=== PATIENT | male | born 1965 | race African-American/Black ===

== ENCOUNTER 2017-04-30 13:04 | Emergency (ER) | payer MEDICAID ==
[~2017-04-30] VITALS: Ht 165.1 cm; Wt 94.6 kg
[2017-04-30] MEDS ORDERED: METHYLPREDNISOLONE SOD SUCC 125 MG/2 ML VIAL IM STA (14:52)
[2017-04-30] MEDS ORDERED: METHYLPREDNISOLONE SOD SUCC 125 MG/2 ML VIAL IV STA (15:04)
[2017-04-30] MEDS ORDERED: IPRATROPIUM/ALBUTEROL 0.5-3(2.5)MG/3ML NEB HHN ONE (15:15)
[2017-04-30 16:19] LABS: BASOPHILS % 0.3 % (0.0-2.0); EOSINOPHILS % 0.5 % (0.0-5.0); HEMATOCRIT. 30.8 % (42.0-52.0); HEMOGLOBIN. 9.2 g/dL (14.0-18.0); MEAN CORPUSCULAR HEMOGLOBIN 21.2 pg (28.0-32.0); MEAN CORPUSCULAR VOLUME 70.7 fL (80.0-94.0); MEAN PLATELET VOLUME 7.2 fl (7.4-10.4); MONOCYTES % 10.3 % (2.0-8.0); NEUTROPHILS % 71.9 % (40.0-76.0); PLATELET 535 x1000/uL (130-400); RED BLOOD CELL COUNT 4.35 mill/uL (4.7-6.1); RED CELL DISTRIBUTION WIDTH 19.9 % (11.6-14.6)
[2017-04-30 16:24] LABS: CHLORIDE 101 mEq/L (98-107)
[2017-04-30 16:32] LABS: CARBON DIOXIDE 29 mEq/L (21-32)
[2017-04-30] MEDS ORDERED: SODIUM CHLORIDE 0.9% 1000ML BAG (SEPSIS BOLUS) IV ONE (16:45)
[2017-04-30] MEDS ORDERED: LEVOFLOXACIN 750MG PREMIX 150 ML IV ONE (16:45)
[2017-04-30 17:30] LABS: INR 1.2; PROTHROMBIN TIME 12.9 sec (9.4-11.6)
[2017-04-30 18:14] LABS: CLARITY URINE CLEAR (CLEAR); COLOR URINE DARK YELLOW (YELLOW); KETONES URINE NEGATIVE (NEGATIVE); LEUKOCYTE ESTERASE URINE TRACE (NEGATIVE); NITRITE URINE NEGATIVE (NEGATIVE); OCCULT BLOOD URINE NEGATIVE (NEGATIVE); PROTEIN URINE NEGATIVE (NEGATIVE); SPECIFIC GRAVITY URINE 1.023 (1.005-1.030)
[2017-04-30] MEDS ORDERED: GUAIFENESIN 200MG/10ML SUGAR FREE UDC PO PRN (19:00)
[2017-04-30] MEDS ORDERED: ACETAMINOPHEN 325MG TABLET PO PRN (19:00)
[2017-04-30] MEDS ORDERED: AZITHROMYCIN 500 MG in DEXT 5% WATER 250 ML IV SCH (19:00)
[2017-04-30] MEDS ORDERED: MAGNESIUM/ALUMINUM HYDROXIDE/SIMETHICONE 30ML UDC PO PRN (19:00)
[2017-04-30] MEDS ORDERED: CEFTRIAXONE 1 G PREMIX 50 ML IV SCH (19:00)
[2017-04-30] MEDS ORDERED: CLONIDINE 0.1MG TABLET PO PRN (19:00)
[2017-04-30] MEDS ORDERED: DOCUSATE SODIUM 100MG CAPSULE PO PRN (19:00)
[2017-04-30] MEDS ORDERED: ENOXAPARIN 40MG/0.4ML SYR SUBCUT SCH (19:00)
[2017-04-30] MEDS ORDERED: ONDANSETRON HCL 4MG/2ML VIAL IV PRN (19:00)
[2017-04-30] MEDS ORDERED: IPRATROPIUM/ALBUTEROL 0.5-3(2.5)MG/3ML NEB INH PRN (19:00)
[2017-04-30 19:26] VITALS: BP 115/53
[2017-04-30 21:06] LABS: *AMPHETAMINES SCREEN URINE NEGATIVE (NEGATIVE); *BARBITURATES SCREEN URINE NEGATIVE (NEGATIVE); *BENZODIAZEPINES SCREEN URINE NEGATIVE (NEGATIVE); *COCAINE SCREEN URINE NEGATIVE (NEGATIVE); CANNABINOID URINE SCREEN NEGATIVE (NEGATIVE); METHADONE URINE SCREEN NEGATIVE (NEGATIVE); OPIATES URINE SCREEN NEGATIVE (NEGATIVE); PHENCYCLIDINE URINE SCREEN NEGATIVE (NEGATIVE)
[2017-04-30] MEDS ORDERED: METHYLPREDNISOLONE SOD SUCC 125 MG/2 ML VIAL IV SCH (22:00)
[2017-04-30 23:44] LABS: CREATINE KINASE 51 IU/L (39-308); CREATINE KINASE MB FRACTION 0.6 ng/mL (0.5-3.6); TROPONIN I < 0.02 ng/mL (0.00-0.04)
[2017-05-01] MEDS ORDERED: MOME13HF PO (22:23)
[2017-05-01] MEDS ORDERED: ALBU6.7H INH (22:23)
[2017-05-01] MEDS ORDERED: ALBU18HF2 INH (22:23)
[2017-05-01] MEDS ORDERED: FERR325T23 PO (22:23)
[2017-05-01] MEDS ORDERED: DOCU-272 PO (22:23)
[2017-05-03] MEDS ORDERED: ATOR20TA65 PO (12:18)
[2017-05-03] MEDS ORDERED: FERR325T6 PO (12:18)
[2017-05-03] MEDS ORDERED: DOCU-150 PO (12:20)
[2017-05-03] MEDS ORDERED: MELO-106 PO (12:21)
[2017-05-03] MEDS ORDERED: OLAN10TA3 PO (12:22)
== END 2017-04-30 21:00 | disposition left against medical advice (07) ==
LOC: ER 13:10 → CANRESERV 20:18 → ENRESERV 20:18 → ER 21:00 → CANBEDREQ 05-01 16:42
DX: J18.9 Pneumonia, unspecified organism (principal); J45.901 Unspecified asthma with (acute) exacerbation; J90 Pleural effusion, not elsewhere classified; D50.9 Iron deficiency anemia, unspecified; Z79.899 Other long term (current) drug therapy; Z79.51 Long term (current) use of inhaled steroids
CPT/HCPCS: 36415; 71010; 80053; 80305; 81001; 82550; 82553; 83540; 83550; 83605; 83735; 84484; 85025; 85044; 85379; 85610; 87040; 87086; 93005; 94640; 96365; 96366; 96375; 99285; J1956; J2930; J7030; Z7610; J7620

== ENCOUNTER 2017-06-13 22:32 | Inpatient (IN) | payer MEDICAID ==
[~2017-06-13] VITALS: Ht 185.4 cm; Wt 85.1 kg
[~2017-06-13 22:32] MED LIST: ALBU18HF2 INH; ALBU6.7H INH; ATOR20TA65 PO; DOCU-150 PO; DOCU-272 PO; FERR325T23 PO; FERR325T6 PO; MELO-106 PO; MOME13HF PO; OLAN10TA3 PO
[2017-06-13] MEDS ORDERED: ONDANSETRON HCL 4MG/2ML VIAL IV STA (23:36)
[2017-06-13] MEDS ORDERED: MORPHINE SULFATE 4 MG/ML CPJ (NOT FOR IM USE) IV STA (23:36)
[2017-06-14 00:11] LABS: BASOPHILS % 0.6 % (0.0-2.0); EOSINOPHILS % 0.2 % (0.0-5.0); HEMATOCRIT. 25.1 % (42.0-52.0); HEMOGLOBIN. 7.6 g/dL (14.0-18.0); MEAN CORPUSCULAR HEMOGLOBIN 21.6 pg (28.0-32.0); MEAN CORPUSCULAR VOLUME 71.7 fL (80.0-94.0); MEAN PLATELET VOLUME 7.5 fl (7.4-10.4); MONOCYTES % 14.3 % (2.0-8.0); NEUTROPHILS % 74.9 % (40.0-76.0); PLATELET 554 x1000/uL (130-400); RED CELL DISTRIBUTION WIDTH 23.3 % (11.6-14.6)
[2017-06-14 00:19] LABS: PLATELET ESTIMATE SLIGHTLY INCREASED
[2017-06-14 00:26] LABS: CHLORIDE 97 mEq/L (98-107); TROPONIN I < 0.02 ng/mL (0.00-0.04)
[2017-06-14 00:33] LABS: BG BASE EXCESS 6.4 mmol/L (-2.0-2.0); BG CARBOXYHEMOGLOBIN 0.9 % (0.5-1.5); BG DEOXYHEMOGLOBIN 3.3 % (0.0-5.0); BG FRACTION INSPIRED OXYGEN 32; BG HCO3 ACT 29.8 mmol/L (22.0-26.0); BG METHEMOGLOBIN 0.4 % (0.0-1.5); BG OXYGEN SATURATION 96.7 % (92.0-98.5); BG OXYHEMOGLOBIN 95.4 % (94.0-97.0); BG PCO2 37.9 mmHg (35.0-45.0); BG PH 7.514 (7.350-7.450); BG PO2 83.8 mmHg (75.0-100.0); BG SAMPLE SITE RIGHT RADIAL; BG TOTAL HEMOGLOBIN 8.2 g/dL (12.0-18.0); BG VENT MODE NASAL CANNULA
[2017-06-14 00:42] LABS: INR 1.5; PROTHROMBIN TIME 15.4 sec (9.4-11.6)
[2017-06-14] MEDS ORDERED: SODIUM CHLORIDE 0.9% 1,000 ML IV ONE (00:44)
[2017-06-14] MEDS ORDERED: MORPHINE SULFATE 4 MG/ML CPJ (NOT FOR IM USE) IV ONE (00:45)
[2017-06-14] MEDS ORDERED: SODIUM CHLORIDE 0.9% 1,000 ML IV SCH (01:55)
[2017-06-14] MEDS ORDERED: IOHEXOL-350 100 ML BOTTLE ONE (05:15)
[2017-06-14 06:45] VITALS: BP 108/64
[2017-06-14 08:00] VITALS: BP 113/63
[2017-06-14 10:30] VITALS: BP 113/63
[2017-06-14 12:00] VITALS: BP 128/72
[2017-06-14] MEDS ORDERED: HYDROCODONE/ACETAMINOPHEN 5/325MG TABLET PO PRN (12:30)
[2017-06-14] MEDS ORDERED: IPRATROPIUM/ALBUTEROL 0.5-3(2.5)MG/3ML NEB HHN PRN (12:30)
[2017-06-14] MEDS ORDERED: FUROSEMIDE 40MG/4ML VIAL IVP NR (13:30)
[2017-06-14] MEDS ORDERED: MORPHINE SULFATE 2 MG/ML CPJ (NOT FOR IM USE) IV PRN (14:45)
[2017-06-14] MEDS: LEVOFLOXACIN 500MG PREMIX 100 ML IV SCH (15:48)
[2017-06-14 16:00] VITALS: BP 131/42
[2017-06-14] MEDS: MEGESTROL ACETATE 20MG TABLET PO SCH (17:54)
[2017-06-14] MEDS: IPRATROPIUM/ALBUTEROL 0.5-3(2.5)MG/3ML NEB HHN SCH (19:56)
[2017-06-14 20:00] VITALS: BP 111/57
[2017-06-14] MEDS ORDERED: GUAIFENESIN 200MG/10ML SUGAR FREE UDC PO PRN (20:15)
[2017-06-14] MEDS: MORPHINE SULFATE 2 MG/ML CPJ (NOT FOR IM USE) IV PRN (21:47)
[2017-06-14] MEDS ORDERED: GUAIFENESIN/CODEINE 200-20MG/10ML UDC PO PRN (23:00)
[2017-06-15] VITALS (19 sets, daily range): BP systolic 104–161; BP diastolic 47–91
[2017-06-15] MEDS: IPRATROPIUM/ALBUTEROL 0.5-3(2.5)MG/3ML NEB HHN SCH ×2 (02:01→08:56)
[2017-06-15] MEDS: MORPHINE SULFATE 2 MG/ML CPJ (NOT FOR IM USE) IV PRN ×5 (02:21→18:50)
[2017-06-15] MEDS: MEGESTROL ACETATE 20MG TABLET PO SCH ×4 (06:00→13:41)
[2017-06-15 06:12] LABS: HEMATOCRIT. 23.2 % (42.0-52.0); MEAN CORPUSCULAR HEMOGLOBIN 21.7 pg (28.0-32.0); MEAN CORPUSCULAR VOLUME 72.2 fL (80.0-94.0); MEAN PLATELET VOLUME 7.8 fl (7.4-10.4); PLATELET 493 x1000/uL (130-400); RED BLOOD CELL COUNT 3.21 mill/uL (4.7-6.1); RED CELL DISTRIBUTION WIDTH 22.8 % (11.6-14.6)
[2017-06-15 08:02] LABS: CHLORIDE 97 mEq/L (98-107); CREATINE KINASE 21 IU/L (39-308); CREATINE KINASE MB FRACTION < 0.5 ng/mL (0.5-3.6); TROPONIN I < 0.02 ng/mL (0.00-0.04)
[2017-06-15 09:00] LABS: BG BASE EXCESS 8.1 mmol/L (-2.0-2.0); BG CARBOXYHEMOGLOBIN 0.4 % (0.5-1.5); BG DEOXYHEMOGLOBIN 3.7 % (0.0-5.0); BG FRACTION INSPIRED OXYGEN 28; BG HCO3 ACT 32.4 mmol/L (22.0-26.0); BG METHEMOGLOBIN 0.4 % (0.0-1.5); BG OXYGEN SATURATION 96.3 % (92.0-98.5); BG OXYHEMOGLOBIN 95.5 % (94.0-97.0); BG PCO2 44.8 mmHg (35.0-45.0); BG PH 7.477 (7.350-7.450); BG PO2 82.9 mmHg (75.0-100.0); BG SAMPLE SITE RIGHT RADIAL; BG TOTAL HEMOGLOBIN 7.6 g/dL (12.0-18.0); BG VENT MODE NASAL CANNULA
[2017-06-15] MEDS: FUROSEMIDE 40MG/4ML VIAL IVP SCH (09:11)
[2017-06-15 09:38] LABS: PLATELET ESTIMATE SLIGHTLY INCREASED
[2017-06-15] MEDS ORDERED: SKIN ADHESIVE 0.7 GM EA TOP ONE (13:08)
[2017-06-15] MEDS ORDERED: BUPIVACAINE HCL/EPINEPHRINE 0.5%/0.0005 30ML ONE (13:08)
[2017-06-15] MEDS ORDERED: NORMAL SALINE 0.9% 10 ML SYR ONE (13:08)
[2017-06-15] MEDS ORDERED: BACITRACIN 50,000 UNITS/VIAL ONE (13:08)
[2017-06-15] MEDS ORDERED: HETASTARCH IV ONE (13:09)
[2017-06-15] MEDS ORDERED: NORMAL SALINE IV ONE (13:09)
[2017-06-15 14:58] LABS: CLARITY URINE CLEAR (CLEAR); COLOR URINE YELLOW (YELLOW); KETONES URINE NEGATIVE (NEGATIVE); LEUKOCYTE ESTERASE URINE NEGATIVE (NEGATIVE); NITRITE URINE NEGATIVE (NEGATIVE); OCCULT BLOOD URINE NEGATIVE (NEGATIVE); PH URINE 7.5 (4.5-8.0); PROTEIN URINE NEGATIVE (NEGATIVE); SPECIFIC GRAVITY URINE 1.008 (1.005-1.030)
[2017-06-15 15:31] LABS: HAPTOGLOBIN 532 mg/dL (30-200); TOTAL IRON BINDING CAPACITY 133 ug/dL (250-450)
[2017-06-15 16:06] LABS: FOLIC ACID (FOLATE) SERUM 6.6 ng/mL (>5.38)
[2017-06-15 18:32] LABS: HEMATOCRIT 25.9 % (42.0-52.0); HEMOGLOBIN 8.1 g/dL (14.0-18.0)
[2017-06-15] MEDS: LEVOFLOXACIN 500MG PREMIX 100 ML IV SCH (18:34)
[2017-06-15] MEDS ORDERED: PROPOFOL 200MG/20ML VIAL IV ONE (19:02)
[2017-06-15] MEDS ORDERED: SUCCINYLCHOLINE CHLORIDE 200MG/10ML VIAL IV ONE (19:07)
[2017-06-15] MEDS ORDERED: VECURONIUM BROMIDE 10 MG/VIAL IV ONE (19:07)
[2017-06-15] MEDS ORDERED: PHENYLEPHRINE HCL 10 MG/ML 1ML (IV VIAL) IV ONE (19:07)
[2017-06-15] MEDS ORDERED: DOXYCYCLINE HYCLATE 100 MG/VIAL IV NR (20:03)
[2017-06-15] MEDS ORDERED: ROCURONIUM BROMIDE 10MG/ML VIAL 5ML IV ONE ×2 (20:12→20:47)
[2017-06-15] MEDS ORDERED: ONDANSETRON HCL 4MG/2ML VIAL ONE (20:49)
[2017-06-15] MEDS: PROPOFOL 10MG/ML 100ML 100 ML IV PRN (23:45)
[2017-06-15 23:58] LABS: HEMATOCRIT 27.2 % (42.0-52.0); HEMOGLOBIN 8.4 g/dL (14.0-18.0); MEAN CORPUSCULAR HEMOGLOBIN 22.7 pg (28.0-32.0); MEAN CORPUSCULAR VOLUME 73.9 fL (80.0-94.0); PLATELET 474 x1000/uL (130-400); RED BLOOD CELL COUNT 3.69 mill/uL (4.7-6.1); RED CELL DISTRIBUTION WIDTH 23.6 % (11.6-14.6)
[2017-06-16] VITALS (74 sets, daily range): BP systolic 92–138; BP diastolic 57–90
[2017-06-16 00:06] LABS: INR 1.5; PARTIAL THROMBOPLASTIN TIME 30.3 sec (23.4-31.0); PROTHROMBIN TIME 16.2 sec (9.4-11.6)
[2017-06-16 00:11] LABS: CHLORIDE 100 mEq/L (98-107)
[2017-06-16 00:17] LABS: PHOSPHORUS 4.7 mg/dL (2.5-4.9)
[2017-06-16] MEDS ORDERED: MORPHINE SULFATE 2 MG/ML CPJ (NOT FOR IM USE) IV PRN (00:30)
[2017-06-16 01:07] LABS: BG BASE EXCESS 4.7 mmol/L (-2.0-2.0); BG CARBOXYHEMOGLOBIN 0.7 % (0.5-1.5); BG DEOXYHEMOGLOBIN 1.6 % (0.0-5.0); BG FRACTION INSPIRED OXYGEN 50; BG HCO3 ACT 29.3 mmol/L (22.0-26.0); BG METHEMOGLOBIN 0.3 % (0.0-1.5); BG OXYGEN SATURATION 98.4 % (92.0-98.5); BG OXYHEMOGLOBIN 97.4 % (94.0-97.0); BG PCO2 43.6 mmHg (35.0-45.0); BG PH 7.445 (7.350-7.450); BG SAMPLE SITE RIGHT RADIAL; BG TIDAL VOLUME(mL) 650 mL; BG TOTAL HEMOGLOBIN 8.8 g/dL (12.0-18.0); BG VENT MODE VENT - A/C; BG VENT RATE 12 set
[2017-06-16] MEDS: PROPOFOL 10MG/ML 100ML 100 ML IV PRN ×8 (01:21→23:38)
[2017-06-16] MEDS: IPRATROPIUM/ALBUTEROL 0.5-3(2.5)MG/3ML NEB HHN SCH ×3 (02:13→19:45)
[2017-06-16] MEDS: MEGESTROL ACETATE 20MG TABLET PO SCH ×6 (06:00→23:49)
[2017-06-16] MEDS: SODIUM CHLORIDE 0.9% 1,000 ML IV SCH ×3 (06:49→21:33)
[2017-06-16] MEDS ORDERED: NOREPINEPHRINE 4 MG in DEXT 5% WATER 246 ML IV PRN (07:30)
[2017-06-16 08:15] LABS: HEMATOCRIT. 25.6 % (42.0-52.0); HEMOGLOBIN. 7.8 g/dL (14.0-18.0); MEAN CORPUSCULAR HEMOGLOBIN 22.9 pg (28.0-32.0); MEAN CORPUSCULAR VOLUME 74.8 fL (80.0-94.0); MEAN PLATELET VOLUME 8.3 fl (7.4-10.4); PLATELET 421 x1000/uL (130-400); RED BLOOD CELL COUNT 3.42 mill/uL (4.7-6.1); RED CELL DISTRIBUTION WIDTH 23.4 % (11.6-14.6)
[2017-06-16 08:35] LABS: CHLORIDE 100 mEq/L (98-107)
[2017-06-16] MEDS: FUROSEMIDE 40MG/4ML VIAL IVP SCH ×2 (09:18→11:00)
[2017-06-16 09:39] LABS: BG BASE EXCESS 4.6 mmol/L (-2.0-2.0); BG CARBOXYHEMOGLOBIN 0.1 % (0.5-1.5); BG FRACTION INSPIRED OXYGEN 50; BG HCO3 ACT 28.8 mmol/L (22.0-26.0); BG METHEMOGLOBIN 0.4 % (0.0-1.5); BG OXYHEMOGLOBIN 97.5 % (94.0-97.0); BG PCO2 41.1 mmHg (35.0-45.0); BG PH 7.463 (7.350-7.450); BG PO2 108.4 mmHg (75.0-100.0); BG SAMPLE SITE RIGHT RADIAL; BG TIDAL VOLUME(mL) 650 mL; BG TOTAL HEMOGLOBIN 9.3 g/dL (12.0-18.0); BG VENT MODE VENT - A/C; BG VENT RATE 12 set
[2017-06-16] MEDS ORDERED: FUROSEMIDE 40MG/4ML VIAL IVP NR (09:45)
[2017-06-16] MEDS: ACETAMINOPHEN 650MG SUPP PR NR ×2 (11:00→23:36)
[2017-06-16 11:05] LABS: PLATELET ESTIMATE INCREASED
[2017-06-16] MEDS: PANTOPRAZOLE SODIUM 40 MG/VIAL IV SCH (12:38)
[2017-06-16] MEDS ORDERED: MAGNESIUM 2 G PREMIX 50 ML IV NR (13:00)
[2017-06-16] MEDS: LEVOFLOXACIN 500MG PREMIX 100 ML IV SCH (15:00)
[2017-06-17] VITALS (52 sets, daily range): BP systolic 102–137; BP diastolic 66–91
[2017-06-17] MEDS: IPRATROPIUM/ALBUTEROL 0.5-3(2.5)MG/3ML NEB HHN SCH ×4 (01:45→20:28)
[2017-06-17] MEDS: PROPOFOL 10MG/ML 100ML 100 ML IV PRN ×5 (04:25→23:01)
[2017-06-17 04:42] LABS: HEMATOCRIT. 29.9 % (42.0-52.0); HEMOGLOBIN. 9.7 g/dL (14.0-18.0); MEAN CORPUSCULAR HEMOGLOBIN 24.1 pg (28.0-32.0); MEAN CORPUSCULAR VOLUME 74.5 fL (80.0-94.0); MEAN PLATELET VOLUME 7.5 fl (7.4-10.4); PLATELET 433 x1000/uL (130-400); RED BLOOD CELL COUNT 4.01 mill/uL (4.7-6.1); RED CELL DISTRIBUTION WIDTH 23.2 % (11.6-14.6)
[2017-06-17 05:00] LABS: CHLORIDE 100 mEq/L (98-107)
[2017-06-17] MEDS: MORPHINE SULFATE 2 MG/ML CPJ (NOT FOR IM USE) IV PRN ×2 (05:05→20:44)
[2017-06-17] MEDS: MEGESTROL ACETATE 20MG TABLET PO SCH ×3 (05:06→18:22)
[2017-06-17 08:24] LABS: BG BASE EXCESS 4.6 mmol/L (-2.0-2.0); BG CARBOXYHEMOGLOBIN 0.8 % (0.5-1.5); BG DEOXYHEMOGLOBIN 1.1 % (0.0-5.0); BG FRACTION INSPIRED OXYGEN 50; BG HCO3 ACT 28.7 mmol/L (22.0-26.0); BG METHEMOGLOBIN 0.4 % (0.0-1.5); BG OXYGEN SATURATION 98.9 % (92.0-98.5); BG OXYHEMOGLOBIN 97.7 % (94.0-97.0); BG PCO2 40.7 mmHg (35.0-45.0); BG PH 7.466 (7.350-7.450); BG PO2 135.3 mmHg (75.0-100.0); BG SAMPLE SITE RIGHT RADIAL; BG TIDAL VOLUME(mL) 650 mL; BG TOTAL HEMOGLOBIN 10.8 g/dL (12.0-18.0); BG VENT MODE VENT - A/C; BG VENT RATE 10 set
[2017-06-17 09:07] LABS: PHOSPHORUS 3.9 mg/dL (2.5-4.9)
[2017-06-17] MEDS: PANTOPRAZOLE SODIUM 40 MG/VIAL IV SCH (09:30)
[2017-06-17] MEDS: FUROSEMIDE 40MG/4ML VIAL IVP SCH (09:30)
[2017-06-17] MEDS: SODIUM CHLORIDE 0.9% 1,000 ML IV SCH ×3 (09:31→20:47)
[2017-06-17 10:43] LABS: BG CARBOXYHEMOGLOBIN 0.6 % (0.5-1.5); BG DEOXYHEMOGLOBIN 1.5 % (0.0-5.0); BG FRACTION INSPIRED OXYGEN 50; BG HCO3 ACT 32.3 mmol/L (22.0-26.0); BG METHEMOGLOBIN 0.3 % (0.0-1.5); BG OXYGEN SATURATION 98.5 % (92.0-98.5); BG OXYHEMOGLOBIN 97.6 % (94.0-97.0); BG PCO2 43.5 mmHg (35.0-45.0); BG PH 7.488 (7.350-7.450); BG PO2 109.7 mmHg (75.0-100.0); BG PRESSURE SUPPORT 12; BG SAMPLE SITE RIGHT RADIAL; BG TIDAL VOLUME(mL) 650 mL; BG TOTAL HEMOGLOBIN 11.3 g/dL (12.0-18.0); BG VENT MODE VENT - SIMV; BG VENT RATE 8 set
[2017-06-17 11:15] LABS: PLATELET ESTIMATE INCREASED
[2017-06-17 13:11] LABS: BG BASE EXCESS 5.4 mmol/L (-2.0-2.0); BG CARBOXYHEMOGLOBIN 0.4 % (0.5-1.5); BG DEOXYHEMOGLOBIN 2.4 % (0.0-5.0); BG FRACTION INSPIRED OXYGEN 40; BG HCO3 ACT 29.3 mmol/L (22.0-26.0); BG METHEMOGLOBIN 0.5 % (0.0-1.5); BG OXYGEN SATURATION 97.6 % (92.0-98.5); BG OXYHEMOGLOBIN 96.7 % (94.0-97.0); BG PCO2 40.5 mmHg (35.0-45.0); BG PH 7.478 (7.350-7.450); BG PO2 97.6 mmHg (75.0-100.0); BG PRESSURE SUPPORT 8; BG SAMPLE SITE RIGHT RADIAL; BG TIDAL VOLUME(mL) 650 mL; BG TOTAL HEMOGLOBIN 11.2 g/dL (12.0-18.0); BG VENT MODE VENT - SIMV; BG VENT RATE 4 set
[2017-06-17] MEDS: LEVOFLOXACIN 500MG PREMIX 100 ML IV SCH (15:29)
[2017-06-18] VITALS (47 sets, daily range): BP systolic 110–154; BP diastolic 57–109
[2017-06-18] MEDS: MEGESTROL ACETATE 20MG TABLET PO SCH ×2 (00:59→06:28)
[2017-06-18] MEDS: IPRATROPIUM/ALBUTEROL 0.5-3(2.5)MG/3ML NEB HHN SCH ×2 (02:12→07:58)
[2017-06-18] MEDS: PROPOFOL 10MG/ML 100ML 100 ML IV PRN (02:52)
[2017-06-18 04:57] LABS: HEMATOCRIT. 32.5 % (42.0-52.0); HEMOGLOBIN. 10.2 g/dL (14.0-18.0); MEAN CORPUSCULAR VOLUME 76.4 fL (80.0-94.0); PLATELET 477 x1000/uL (130-400); RED BLOOD CELL COUNT 4.26 mill/uL (4.7-6.1); RED CELL DISTRIBUTION WIDTH 23.1 % (11.6-14.6)
[2017-06-18] MEDS ORDERED: LIDOCAINE HCL/PF 1% 2ML VIAL ONE (05:00)
[2017-06-18 05:10] LABS: CHLORIDE 101 mEq/L (98-107)
[2017-06-18] MEDS ORDERED: PROPOFOL 10MG/ML 100ML 100 ML IV PRN ×2 (06:45→09:30)
[2017-06-18] MEDS: SODIUM CHLORIDE 0.9% 1,000 ML IV SCH (07:14)
[2017-06-18 08:21] LABS: BG CARBOXYHEMOGLOBIN 0.4 % (0.5-1.5); BG DEOXYHEMOGLOBIN 2.6 % (0.0-5.0); BG FRACTION INSPIRED OXYGEN 40; BG HCO3 ACT 29.3 mmol/L (22.0-26.0); BG METHEMOGLOBIN 0.4 % (0.0-1.5); BG OXYGEN SATURATION 97.4 % (92.0-98.5); BG OXYHEMOGLOBIN 96.6 % (94.0-97.0); BG PCO2 41.9 mmHg (35.0-45.0); BG PH 7.462 (7.350-7.450); BG PO2 96.4 mmHg (75.0-100.0); BG PRESSURE SUPPORT 16; BG SAMPLE SITE RIGHT RADIAL; BG TIDAL VOLUME(mL) 650 mL; BG TOTAL HEMOGLOBIN 10.6 g/dL (12.0-18.0); BG VENT MODE VENT - SIMV; BG VENT RATE 8 set
[2017-06-18] MEDS: FUROSEMIDE 40MG/4ML VIAL IVP SCH (08:23)
[2017-06-18] MEDS: PANTOPRAZOLE SODIUM 40 MG/VIAL IV SCH (08:23)
[2017-06-18] MEDS: MORPHINE SULFATE 2 MG/ML CPJ (NOT FOR IM USE) IV PRN ×4 (08:25→20:25)
[2017-06-18] MEDS ORDERED: MIDAZOLAM HCL 100 MG in DEXT 5% WATER 80 ML IV PRN (09:00)
[2017-06-18] MEDS ORDERED: FENTANYL CITRATE/PF 500 MCG in SODIUM CHLORIDE 0.9% 40 ML IV PRN (09:30)
[2017-06-18 11:09] LABS: BG BASE EXCESS 5.3 mmol/L (-2.0-2.0); BG CARBOXYHEMOGLOBIN 0.5 % (0.5-1.5); BG FRACTION INSPIRED OXYGEN 40; BG HCO3 ACT 29.5 mmol/L (22.0-26.0); BG METHEMOGLOBIN 0.3 % (0.0-1.5); BG OXYHEMOGLOBIN 95.2 % (94.0-97.0); BG PCO2 41.7 mmHg (35.0-45.0); BG PH 7.468 (7.350-7.450); BG PO2 82.6 mmHg (75.0-100.0); BG PRESSURE SUPPORT 8; BG SAMPLE SITE RIGHT RADIAL; BG TOTAL HEMOGLOBIN 11.4 g/dL (12.0-18.0); BG VENT MODE VENT - CPAP
[2017-06-18 11:20] LABS: PLATELET ESTIMATE INCREASED
[2017-06-18] MEDS ORDERED: MORPHINE SULFATE 2 MG/ML CPJ (NOT FOR IM USE) IV PRN (12:15)
[2017-06-18] MEDS: IPRATROPIUM BROMIDE (0.02%) 0.5MG/2.5ML NEB HHN SCH ×2 (14:06→20:42)
[2017-06-18] MEDS: LEVOFLOXACIN 500MG PREMIX 100 ML IV SCH (15:39)
[2017-06-18] MEDS ORDERED: ZOLPIDEM TARTRATE 5MG TABLET PO PRN (22:30)
[2017-06-19] VITALS (31 sets, daily range): BP systolic 104–150; BP diastolic 52–101
[2017-06-19] MEDS: IPRATROPIUM BROMIDE (0.02%) 0.5MG/2.5ML NEB HHN SCH ×3 (01:30→20:38)
[2017-06-19] MEDS: MORPHINE SULFATE 2 MG/ML CPJ (NOT FOR IM USE) IV PRN ×7 (02:52→23:35)
[2017-06-19 07:19] LABS: BG BASE EXCESS 3.6 mmol/L (-2.0-2.0); BG DEOXYHEMOGLOBIN 4.7 % (0.0-5.0); BG HCO3 ACT 28.1 mmol/L (22.0-26.0); BG METHEMOGLOBIN 0.2 % (0.0-1.5); BG OXYGEN SATURATION 95.2 % (92.0-98.5); BG OXYHEMOGLOBIN 94.1 % (94.0-97.0); BG PH 7.443 (7.350-7.450); BG PO2 75.8 mmHg (75.0-100.0); BG SAMPLE SITE RIGHT RADIAL; BG TOTAL HEMOGLOBIN 11.7 g/dL (12.0-18.0); BG VENT MODE NASAL CANNULA
[2017-06-19] MEDS: FUROSEMIDE 40MG/4ML VIAL IVP SCH (08:09)
[2017-06-19] MEDS: PANTOPRAZOLE SODIUM 40 MG/VIAL IV SCH (08:09)
[2017-06-19 09:35] LABS: HEMATOCRIT. 35.1 % (42.0-52.0); HEMOGLOBIN. 10.7 g/dL (14.0-18.0); MEAN CORPUSCULAR HEMOGLOBIN 23.6 pg (28.0-32.0); MEAN CORPUSCULAR VOLUME 77.3 fL (80.0-94.0); MEAN PLATELET VOLUME 8.7 fl (7.4-10.4); PLATELET 498 x1000/uL (130-400); RED BLOOD CELL COUNT 4.54 mill/uL (4.7-6.1); RED CELL DISTRIBUTION WIDTH 24.3 % (11.6-14.6)
[2017-06-19 09:46] LABS: CHLORIDE 102 mEq/L (98-107)
[2017-06-19] MEDS ORDERED: CLONIDINE 0.1MG TABLET PO PRN (10:30)
[2017-06-19] MEDS ORDERED: CEFEPIME 2,000 MG in SODIUM CHLORIDE 0.9% 100 ML IV SCH (11:00)
[2017-06-19] MEDS ORDERED: POTASSIUM CHLORIDE 20MEQ TABLET SR PO NR (11:00)
[2017-06-19 11:20] LABS: PLATELET ESTIMATE INCREASED
[2017-06-19] MEDS: DILTIAZEM HCL 30MG TABLET PO SCH ×3 (11:36→23:33)
[2017-06-19] MEDS ORDERED: METRONIDAZOLE 500 MG PREMIX 100 ML IV SCH (12:00)
[2017-06-19] MEDS ORDERED: CEFEPIME 2,000 MG in SODIUM CHLORIDE 0.9% 50 ML IV SCH (20:19)
[2017-06-19] MEDS: METRONIDAZOLE 500 MG PREMIX 100 ML IV SCH (21:24)
[2017-06-19] MEDS: CEFEPIME 2,000 MG in SODIUM CHLORIDE 0.9% 50 ML IV SCH (23:09)
[2017-06-20] VITALS (15 sets, daily range): BP systolic 107–136; BP diastolic 63–90
[2017-06-20] MEDS: IPRATROPIUM BROMIDE (0.02%) 0.5MG/2.5ML NEB HHN SCH ×4 (02:44→20:49)
[2017-06-20] MEDS: MORPHINE SULFATE 2 MG/ML CPJ (NOT FOR IM USE) IV PRN ×5 (02:45→17:21)
[2017-06-20] MEDS: METRONIDAZOLE 500 MG PREMIX 100 ML IV SCH ×3 (05:13→22:11)
[2017-06-20] MEDS: DILTIAZEM HCL 30MG TABLET PO SCH ×2 (05:25→06:16)
[2017-06-20] MEDS: FUROSEMIDE 40MG/4ML VIAL IVP SCH (08:38)
[2017-06-20] MEDS: PANTOPRAZOLE SODIUM 40 MG/VIAL IV SCH (08:39)
[2017-06-20 08:55] LABS: BG BASE EXCESS 6.9 mmol/L (-2.0-2.0); BG DEOXYHEMOGLOBIN 4.4 % (0.0-5.0); BG FRACTION INSPIRED OXYGEN 32; BG HCO3 ACT 31.4 mmol/L (22.0-26.0); BG METHEMOGLOBIN 0.3 % (0.0-1.5); BG OXYGEN SATURATION 95.5 % (92.0-98.5); BG OXYHEMOGLOBIN 94.3 % (94.0-97.0); BG PCO2 44.2 mmHg (35.0-45.0); BG PH 7.469 (7.350-7.450); BG PO2 74.7 mmHg (75.0-100.0); BG SAMPLE SITE RIGHT RADIAL; BG TOTAL HEMOGLOBIN 12.2 g/dL (12.0-18.0); BG VENT MODE NASAL CANNULA
[2017-06-20] MEDS: CEFEPIME 2,000 MG in SODIUM CHLORIDE 0.9% 50 ML IV SCH ×2 (11:16→23:15)
[2017-06-20] MEDS ORDERED: POTASSIUM CHLORIDE 20MEQ TABLET SR PO ONE (11:30)
[2017-06-20] MEDS: DILTIAZEM HCL 60MG TABLET PO SCH ×2 (13:05→17:18)
[2017-06-20] MEDS: FAMOTIDINE 20MG/2ML VIAL IV SCH (20:08)
[2017-06-20] MEDS: MORPHINE SULFATE 4 MG/ML CPJ (NOT FOR IM USE) IV PRN ×2 (20:09→22:45)
[2017-06-20] MEDS ORDERED: MORPHINE SULFATE 4 MG/ML CPJ (NOT FOR IM USE) IV PRN (20:15)
[2017-06-21] VITALS (15 sets, daily range): BP systolic 113–167; BP diastolic 66–92
[2017-06-21] MEDS: DILTIAZEM HCL 60MG TABLET PO SCH ×4 (00:52→18:49)
[2017-06-21] MEDS: MORPHINE SULFATE 4 MG/ML CPJ (NOT FOR IM USE) IV PRN ×8 (02:12→23:20)
[2017-06-21] MEDS: IPRATROPIUM BROMIDE (0.02%) 0.5MG/2.5ML NEB HHN SCH ×4 (02:27→20:33)
[2017-06-21] MEDS: METRONIDAZOLE 500 MG PREMIX 100 ML IV SCH ×3 (05:24→21:08)
[2017-06-21 06:12] LABS: HEMATOCRIT. 32.8 % (42.0-52.0); HEMOGLOBIN. 10.4 g/dL (14.0-18.0); MEAN CORPUSCULAR HEMOGLOBIN 24.1 pg (28.0-32.0); MEAN CORPUSCULAR VOLUME 76.1 fL (80.0-94.0); MEAN PLATELET VOLUME 7.8 fl (7.4-10.4); PLATELET 403 x1000/uL (130-400); RED CELL DISTRIBUTION WIDTH 24.2 % (11.6-14.6)
[2017-06-21 07:01] LABS: CHLORIDE 97 mEq/L (98-107)
[2017-06-21 07:16] LABS: PLATELET ESTIMATE SLIGHTLY INCREASED
[2017-06-21] MEDS ORDERED: POTASSIUM CHLORIDE 20MEQ/PACKET PO NR (08:15)
[2017-06-21] MEDS: FAMOTIDINE 20MG/2ML VIAL IV SCH ×2 (08:55→20:57)
[2017-06-21] MEDS: CEFEPIME 2,000 MG in SODIUM CHLORIDE 0.9% 50 ML IV SCH ×2 (10:04→22:45)
[2017-06-21] MEDS: FUROSEMIDE 40MG/4ML VIAL IVP SCH (10:04)
[2017-06-21] MEDS: GUAIFENESIN 600MG ER TABLET PO SCH (20:57)
[2017-06-22] VITALS (11 sets, daily range): BP systolic 112–141; BP diastolic 56–82
[2017-06-22] MEDS: DILTIAZEM HCL 60MG TABLET PO SCH ×4 (00:32→17:19)
[2017-06-22] MEDS: MORPHINE SULFATE 4 MG/ML CPJ (NOT FOR IM USE) IV PRN ×7 (00:32→16:14)
[2017-06-22] MEDS: IPRATROPIUM BROMIDE (0.02%) 0.5MG/2.5ML NEB HHN SCH ×2 (00:38→13:44)
[2017-06-22] MEDS: METRONIDAZOLE 500 MG PREMIX 100 ML IV SCH ×2 (05:52→14:01)
[2017-06-22] MEDS: FUROSEMIDE 40MG/4ML VIAL IVP SCH (08:14)
[2017-06-22] MEDS: FAMOTIDINE 20MG/2ML VIAL IV SCH (08:14)
[2017-06-22] MEDS: GUAIFENESIN 600MG ER TABLET PO SCH (08:15)
[2017-06-22] MEDS ORDERED: POTASSIUM CHLORIDE 20MEQ/PACKET PO SCH (09:00)
[2017-06-22] MEDS: CEFEPIME 2,000 MG in SODIUM CHLORIDE 0.9% 50 ML IV SCH (10:56)
[2017-06-22] MEDS ORDERED: DILT240C91 PO (11:18)
[2017-06-22] MEDS ORDERED: IPRA3AMP9 HHN (11:18)
[2017-06-22] MEDS ORDERED: ZOLP5TAB2 PO (11:18)
[2017-06-22] MEDS ORDERED: AMOX-424 PO (11:18)
[2017-06-22] MEDS ORDERED: DOCU-138 PO (11:18)
[2017-06-22] MEDS ORDERED: MORP30TA54 PO (11:18)
[2017-06-22] MEDS ORDERED: OMEP20CA10 PO (11:18)
[2017-06-22] MEDS ORDERED: FURO-151 PO (11:18)
[2017-06-22 11:21] LABS: HEMATOCRIT. 34.6 % (42.0-52.0); HEMOGLOBIN. 10.9 g/dL (14.0-18.0); MEAN CORPUSCULAR VOLUME 76.5 fL (80.0-94.0); MEAN PLATELET VOLUME 7.6 fl (7.4-10.4); PLATELET 408 x1000/uL (130-400); RED BLOOD CELL COUNT 4.53 mill/uL (4.7-6.1); RED CELL DISTRIBUTION WIDTH 25.3 % (11.6-14.6)
[2017-06-22 11:47] LABS: CHLORIDE 96 mEq/L (98-107)
[2017-06-22 13:23] LABS: PLATELET ESTIMATE INCREASED
== END 2017-06-22 19:30 | disposition home health service (06) | DRG 710 ==
LOC: ER 22:32 → 5WST 06-14 01:56 → EDBEDREQ 06-14 02:19 → ENRESERV 06-14 03:40 → CVICU 06-15 20:50 → 3WST 06-19 18:24
PROVIDERS: ADMIT Internal Medicine; ATTEND Internal Medicine
PROC: 3E0L3GC Introduction of Other Therapeutic Substance into Pleural Cavity, Percutaneous Approach (ICD-10-PCS; 2017-06-15)
PROC: 0W9900Z Drainage of Right Pleural Cavity with Drainage Device, Open Approach (ICD-10-PCS; 2017-06-15)
PROC: 3E0T3BZ Introduction of Anesthetic Agent into Peripheral Nerves and Plexi, Percutaneous Approach (ICD-10-PCS; 2017-06-15)
PROC: 30233N1 Transfusion of Nonautologous Red Blood Cells into Peripheral Vein, Percutaneous Approach (ICD-10-PCS; 2017-06-15)
PROC: 5A1945Z Respiratory Ventilation, 24-96 Consecutive Hours (ICD-10-PCS; 2017-06-15)
PROC: 0BNK0ZZ Release Right Lung, Open Approach (ICD-10-PCS; principal; 2017-06-15 18:00)
PROC: 3E0L3GC Introduction of Other Therapeutic Substance into Pleural Cavity, Percutaneous Approach (ICD-10-PCS; 2017-06-20)
DX: A41.9 Sepsis, unspecified organism (principal); J96.00 Acute respiratory failure, unspecified whether with hypoxia or hypercapnia; J86.9 Pyothorax without fistula; J94.2 Hemothorax; J91.0 Malignant pleural effusion; J18.8 Other pneumonia, unspecified organism; E87.2 Acidosis; J94.8 Other specified pleural conditions; D68.9 Coagulation defect, unspecified; E44.0 Moderate protein-calorie malnutrition; C34.90 Malignant neoplasm of unspecified part of unspecified bronchus or lung; C64.9 Malignant neoplasm of unspecified kidney, except renal pelvis; D64.9 Anemia, unspecified; I27.20 Pulmonary hypertension, unspecified; E78.00 Pure hypercholesterolemia, unspecified; E78.1 Pure hyperglyceridemia; E78.5 Hyperlipidemia, unspecified; E89.0 Postprocedural hypothyroidism; F32.9 Major depressive disorder, single episode, unspecified; K21.9 Gastro-esophageal reflux disease without esophagitis; F41.9 Anxiety disorder, unspecified; M19.90 Unspecified osteoarthritis, unspecified site; R73.9 Hyperglycemia, unspecified; J45.909 Unspecified asthma, uncomplicated; R14.0 Abdominal distension (gaseous); Z99.81 Dependence on supplemental oxygen; Z87.891 Personal history of nicotine dependence; Z80.0 Family history of malignant neoplasm of digestive organs; Z79.899 Other long term (current) drug therapy; Z68.24 Body mass index [BMI] 24.0-24.9, adult; Z85.118 Personal history of other malignant neoplasm of bronchus and lung
CPT/HCPCS: 36415; 36600; 71045; 71275; 74018; 76770; 80048; 80053; 81003; 82375; 82550; 82553; 82607; 82728; 82746; 82805; 82945; 83010; 83540; 83550; 83605; 83615; 83735; 83880; 84100; 84157; 84443; 84478; 84484; 85014; 85018; 85025; 85027; 85044; 85362; 85379; 85610; 85651; 85730; 86300; 86301; 86850; 86900; 86920; 87040; 87070; 87075; 87102; 87116; 87205; 88108; 88312; 89050; 92610; 93005; 93306; 94002; 94003; 94640; 94664; 96374; 96375; 96376; 97116; 97163; 97166; 97530; 97535; 99285; A4216; A7042; C9113; J0171; J0330; J0692; J1940; J1956; J2250; J2270; J2370; J2405; J2704; J3010; J3475; J3490; J7030; J7040; J7050; J7060; J7620; P9016; Q9967